=== PATIENT | female | born 1970 | race African-American/Black ===

== ENCOUNTER 2016-12-14 21:10 | Emergency (ER) | payer OTHER ==
[~2016-12-14] VITALS: Ht 170.2 cm; Wt 85.3 kg
--- NOTE | 2016-12-14 21:43 | PHYS DOC ---
Past History Past Medical History: No Pertinent History Alcohol Use: None Drug Use: None Adult General Chief Complaint Chief Complaint: KNEE INJURY HPI HPI 46-year-old otherwise healthy female presenting to the emergency department with right knee pain. She recently was seen at [facility] for having a closed right knee dislocation status post reduction. She did have a CT angiography of her right popliteal artery that was without any abnormalities at that time. She was placed in a knee immobilizer and instructed to follow up with Dr. Mcclain who she was able to follow up with hand is currently undergoing pursuing an MRI. Today she has noticed that she is been having worsening pain and swelling and has mild numbness and tingling in her deep peroneal nerve distribution. She has been walking on it today but she denies this being more than normal. Her pain is sharp moderate nonradiating mild and associated with mild tingling in her deep peroneal nerve. Review of systems is negative for fevers chills cough chest pain shortness of breath. She denies any rashes. All other review of systems is negative unless otherwise noted in history of present illness. Review of Systems Review of Systems SEE ABOVE. Allergies Allergies Allergies Coded Allergies Type Severity Reaction Last Updated Verified No Known Drug Allergies 12/14/16 No Physical Exam Physical Exam Constitutional: Well developed, well nourished, no acute distress, non-toxic appearance. HENT: Normocephalic, atraumatic, bilateral external ears normal, oropharynx moist, no oral exudates, nose normal. [] Eyes: PERRLA, EOMI, conjunctiva normal, no discharge. Neck: Normal range of motion, no tenderness, supple, no stridor. [] Cardiovascular:Heart rate regular rhythm, no murmur Lungs & Thorax: Bilateral breath sounds clear to auscultation [] Abdomen: Bowel sounds normal, soft, no tenderness, no masses, no pulsatile masses. [] Skin: Warm, dry, no erythema, no rash. [] Back: No tenderness, no CVA tenderness. [] Extremities: The patient's right lower extremity is currently in a knee immobilizer. After opening obtain immobilizer the patient has mild swelling. The knee joint itself is not erythematous and there is no rash. It is mildly warm to touch when compared to the contralateral side. Consistent with previous injury. Otherwise she reports mild decrease in sensation in the deep peroneal nerve. She is able to wiggle her toes and move her foot. 2 second cap refill present. Palpable pulse present. The remainder the extremities are nontender with normal range of motion. Neurologic: Alert and oriented X 3, normal motor function, normal sensory function, no focal deficits noted. Psychologic: Affect normal, judgement normal, mood normal. [] EKG EKG [] Radiology/Procedures Radiology/Procedures [] Course & Med Decision Making Course & Med Decision Making Pertinent Labs and Imaging studies reviewed. (See chart for details) [] 46-year-old female status post right knee dislocation coming in with acute knee pain. Vital signs afebrile. Pertinent physical exam findings show the knee was mildly swollen and mildly warm to touch. I considered septic arthritis however the patient's swelling and warmth to touch of the knee joint is quite consistent with her injury. There is no overlying cellulitis. I had a risk- benefit discussion with them about doing an arthrocentesis and collectively we decided not to perform this procedure. X-rays were obtained. I discussed the case with [Leny]. bloodwork showed nl wbc and esr. US of the leg showed midcalf superficial vein clot without DVT. I recommended full dose asa and f/u with pcp and dr. mcclain. The patient was then discharged home in stable condition to follow up with Dr. Mcclain tomorrow or the next day. They were to return if their symptoms worsened or if they were concerned for any reason. [id number] discharge instructions and return precautions were given. Patient's questions were answered to their satisfaction. Patient is comfortable plan. Dragon Disclaimer Dragon Disclaimer This chart was dictated in whole or in part using Voice Recognition software in a busy, high-work load, and often noisy Emergency Department environment. It may contain unintended and wholly unrecognized errors or omissions. Departure Departure: Impression: Primary Impression: Right knee pain Additional Impression: Superficial vein thrombosis Disposition: 01 HOME, SELF-CARE Condition: STABLE Referrals: PCP,UNKNOWN (PCP) Patient Instructions: Knee Dislocation Additional Instructions: Thank you for allowing us to participate in your care today. Followup with your primary care physician in 1-2 days. Take aspirin for superficial clot. You will need a repeat ultrasound of the leg in 1-2 wks. If you do not have a primary care provider you can ask for a list of our primary care providers. Return to the emergency department you have any new or concerning findings. This should be evaluated by the primary care physician and any necessary consulting services for continued management within a few days after discharge. Return to emergency room if you have any new or concerning symptoms including but not limited to fever, chills, nausea, vomiting, intractable pain, any new rashes, chest pain, shortness of air, uncontrolled bleeding, difficulty breathing, and/or vision loss. Scripts Aspirin (ASPIRIN) 325 Mg Tablet 1 TAB PO DAILY, #7 TAB 5 Refills Prov: NATALIA GONZALEZ MD 12/15/16 Problem Qualifiers NATALIA GONZALEZ MD December 14, 2016 21:43
[2016-12-14 22:51] VITALS: BP 143/73
[2016-12-14 23:15] LABS: BASO % 0 % (0-3); EOS # 0.6 x10^3/uL (0.0-0.7); EOS % 6 % (0-3); HEMATOCRIT 34.8 % (36.0-47.0); HEMOGLOBIN 11.5 g/dL (12.0-15.5); LYMPH # 2.8 x10^3/uL (1.0-4.8); LYMPH % 28 % (24-48); MEAN CORPUSCULAR HEMOGLOBIN 27 pg (25-35); MEAN CORPUSCULAR HGB CONC 33 g/dL (31-37); MEAN CORPUSCULAR VOLUME 82 fL (79-100); MONO # 0.7 x10^3/uL (0.0-1.1); MONO % 7 % (0-9); NEUT # 5.6 x10^3uL (1.8-7.7); NEUT % 58 % (31-73); PLATELET COUNT 277 x10^3/uL (140-400); RED BLOOD COUNT 4.26 x10^6/uL (3.50-5.40); RED CELL DISTRIBUTION WIDTH 15.7 % (11.5-14.5); WHITE BLOOD COUNT 9.7 x10^3/uL (4.0-11.0)
[2016-12-14 23:18] LABS: CALCIUM 8.8 mg/dL (8.5-10.1); CREATININE 1.2 mg/dL (0.6-1.0); GFR 59.1; POTASSIUM 3.6 mmol/L (3.5-5.1)
--- NOTE | 2016-12-14 23:58 | RAD ---
INDICATION: Leg pain. COMPARISON: None TECHNIQUE: Grayscale, color and spectral doppler ultrasound images are obtained through the right leg deep venous system. FINDINGS: Vascular flow is seen in the common femoral, superficial femoral, popliteal and visualized calf veins. IMPRESSION: No deep vein thrombosis identified of the right leg. Thrombus seen in gastrocnemius vein at mid calf. Electronically signed by: Mathew Steve (December 14, 2016 23:56:36)
[2016-12-15 00:11] LABS: SEDIMENTATION RATE 15 (0-25)
[2016-12-15] MEDS ORDERED: ASPI325T8 PO (00:39)
--- NOTE | 2016-12-15 07:52 | RAD ---
Right knee, 3 views, 12/14/2016: History: Injury, knee pain No fracture or dislocation is identified. There appears to be streaky edema in the soft tissues laterally. IMPRESSION: No acute bony abnormality is detected.
== END 2016-12-15 00:50 | disposition home or self-care (01) ==
LOC: ER 21:10
DX: I82.811 Embolism and thrombosis of superficial veins of right lower extremity (principal)
CPT/HCPCS: 29505; 36415; 73562; 80048; 85027; 85651; 93971; 99285-25

== ENCOUNTER 2017-01-07 12:48 | Emergency (ER) | payer OTHER ==
[~2017-01-07 12:48] MED LIST: ASPI325T8 PO
--- NOTE | 2017-01-07 13:32 | PHYS DOC ---
Past History Past Medical History: Other Past Surgical History: No Surgical History, , Other Alcohol Use: Occasionally Drug Use: None Adult General Chief Complaint Chief Complaint: KNEE SWELLING [facility] HPI This 46-year-old lady had an operation on her right knee on January 02. She is in a knee immobilizer and has an Rohan wrap on her leg. She is taking Xarelto to prevent DVT. He states that it feels like her leg is swollen and the skin is stretching because of the swelling. Review of Systems Review of Systems Constitutional: Denies fever or chills [] Eyes: Denies change in visual acuity, redness, or eye pain [] HENT: Denies nasal congestion or sore throat [] Respiratory: Denies cough or shortness of breath [] Cardiovascular: No additional information not addressed in HPI [] GI: Denies abdominal pain, nausea, vomiting, bloody stools or diarrhea [] : Denies dysuria or hematuria [] Musculoskeletal: Denies back pain or joint pain [] Integument: Denies rash or skin lesions [] Neurologic: Denies headache, focal weakness or sensory changes [] Endocrine: Denies polyuria or polydipsia [] Allergies Allergies Allergies Coded Allergies Type Severity Reaction Last Updated Verified No Known Drug Allergies 12/14/16 No Physical Exam Physical Exam Constitutional: Well developed, well nourished, no acute distress, non-toxic appearance. [] HENT: Normocephalic, atraumatic, bilateral external ears normal, oropharynx moist, no oral exudates, nose normal. [] Eyes: PERRLA, EOMI, conjunctiva normal, no discharge. [] Neck: Normal range of motion, no tenderness, supple, no stridor. [] Cardiovascular:Heart rate regular rhythm, no murmur [] Lungs & Thorax: Bilateral breath sounds clear to auscultation [] Abdomen: Bowel sounds normal, soft, no tenderness, no masses, no pulsatile masses. [] Skin: Warm, dry, no erythema, no rash. [] Back: No tenderness, no CVA tenderness. [] Extremities: No tenderness, no cyanosis, no clubbing, ROM intact, no edema. She has normal postoperative changes of the right lower extremity. There is some swelling around the incisions is no erythema or increased warmth Neurologic: Alert and oriented X 3, normal motor function, normal sensory function, no focal deficits noted. [] Psychologic: Affect normal, judgement normal, mood normal. [] Current Patient Data Vital Signs Vital Signs Date Time Temp Pulse Resp B/P (MAP) Pulse Ox O2 Delivery O2 Flow Rate FiO2 01/07/17 12:48 98.9 97 18 98 Room Air EKG EKG [] Radiology/Procedures Radiology/Procedures [] Impressions: Postoperative right knee pain , hematoma at the operative sites Course & Med Decision Making Course & Med Decision Making Ultrasound was done of the right knee and revealed no evidence of DVT however there is a large 14 x 7 x 2 cm hematoma around the operative site I talked at length with her orthopedic physician who advised that he will follow the patient and to continue her current medications [] Dragon Disclaimer Dragon Disclaimer This chart was dictated in whole or in part using Voice Recognition software in a busy, high-work load, and often noisy Emergency Department environment. It may contain unintended and wholly unrecognized errors or omissions. Departure Departure: Referrals: COREY STAHL MD (PCP) MAEVE MARTINEZ MD Jan 07, 2017 13:32
--- NOTE | 2017-01-07 14:36 | RAD ---
Right lower extremity venous ultrasound, 01/07/2017 : History: Leg swelling and pain Duplex evaluation including grayscale, color flow and spectral Doppler analysis was performed. The femoral and popliteal veins show no filling defects to suggest DVT. The visualized deep veins in the right calf are unremarkable. There is a large hypoechoic mass in the posterolateral soft tissues of the upper knee extending down into the upper calf. This process measures 14.7 x 7.8 x 2.7 cm. There are low level heterogeneous internal echoes. The findings are most compatible with a hematoma. Infection within this process cannot be excluded. IMPRESSION: 1. There is no sonographic evidence of deep vein thrombosis in the right lower extremity. 2. Complex fluid collection in the soft tissues along the posterolateral aspect of the knee and upper calf most compatible with a hematoma.
[2017-01-07 14:45] VITALS: BP 114/73
== END 2017-01-07 14:45 | disposition home or self-care (01) ==
LOC: ER 12:48
DX: G89.18 Other acute postprocedural pain (principal); M25.561 Pain in right knee; M96.840 Postprocedural hematoma of a musculoskeletal structure following a musculoskeletal system procedure
CPT/HCPCS: 93971; 99284-25

== ENCOUNTER 2020-05-26 12:01 | Emergency (ER) | payer OTHER ==
[~2020-05-26] VITALS: Ht 175.3 cm; Wt 90.9 kg
--- NOTE | 2020-05-26 12:41 | PHYS DOC ---
Past History Past Medical History: Other Past Surgical History: No Surgical History, , Other Alcohol Use: Occasionally Drug Use: None Adult General Chief Complaint Chief Complaint: LOWEREXTREMITY INJURY HPI HPI Patient is a 49-year-old female who presents with right foot pain. Patient reports walking and stepping and landing awkwardly on right foot. No pain or popping, slight inversion type injury. Has pain in midfoot on lateral portion, has not been able to fully bear weight on it due to the pain. Has not taken anything for the pain. Patient presenting for evaluation today. Reports motor and sensory functions intact, no other neurologic deficits reported Review of Systems Review of Systems Fourteen body systems of review of systems have been reviewed. See HPI for pertinent positives and negative responses, other hines all other systems are negative, non-pertinent or non-contributory Allergies Allergies Allergies Coded Allergies Type Severity Reaction Last Updated Verified No Known Drug Allergies 12/14/16 No Physical Exam Physical Exam Constitutional: Well developed, well nourished, no acute distress, non-toxic appearance. HENT: Normocephalic, atraumatic, bilateral external ears normal, oropharynx moist, no oral exudates, nose normal. Eyes: PERRLA, EOMI, conjunctiva normal, no discharge. Neck: Normal range of motion, no tenderness, supple, no stridor. Cardiovascular: Heart rate regular, sinus rhythm, no murmurs rubs or gallops Lungs & Thorax: Bilateral breath sounds clear to auscultation Abdomen: Bowel sounds normal, soft, no tenderness, no masses, no pulsatile masses. Nonsurgical abdomen, no peritoneal signs Skin: Warm, dry, no erythema, no rash. Back: No tenderness, no CVA tenderness. Extremities: Point tenderness to base of fifth metatarsal on right foot, antalgic gait due to pain without any other concerning findings on right lower extremity exam, no cyanosis, no clubbing, ROM intact, no edema. Neurologic: Alert and oriented X 3, normal motor & sensory function, no focal deficits noted. Psychologic: Affect normal, judgement normal, mood normal. Current Patient Data Vital Signs Vital Signs Date Time Temp Pulse Resp B/P (MAP) Pulse Ox O2 Delivery O2 Flow Rate FiO2 05/26/20 12:43 86 18 141/79 (99) 99 EKG EKG EKG ordered and interpreted by myself at 1240 hrs. as sinus rhythm at 98 bpm, unremarkable intervals, no axis deviation, no acute ischemic findings, no evidence of right heart strain or other findings consistent with potential pulmonary embolism, no STEMI Radiology/Procedures Radiology/Procedures PROCEDURE: FOOT RIGHT 3V Right foot 3 views: Reason for examination: Fell. There appears to be a transverse linear lucency at the base of the fifth metatarsal bone consistent with a nondisplaced fracture. No other site of fracture or dislocation is seen. The bone density is normal. No abnormal periosteal reaction is seen. Joint spaces appear to be maintained. IMPRESSION: Transverse linear lucency present posterior tip of the fifth metatarsal bone consistent with a nondisplaced fracture. Electronically signed by: Michelle Finch MD (05/26/2020 12:40 PM) [facility] Heart Score HEART Score for Chest Pain: HEART Score for Chest Pain Response (Comments) Value History Slighlty/Non-Suspicious 0 ECG Normal 0 Age < 45 0 Risk Factors 1 or 2 Risk Factors 1 Total 1 Risk Factors: Risk Factors: DM, Current or recent (<one month) smoker, HTN, HLP, family history of CAD, obesity. Risk Scores: Risk Factors: DM, Current or recent (<one month) smoker, HTN, HLP, family history of CAD, obesity. Course & Med Decision Making Course & Med Decision Making Discussed most likely diagnosis of zone [address] Mcmahan, Ortho at [facility] contacted and case discussed. Joint decision to apply short leg splint/walking boot with ambulation as tolerated with close follow-up in outpatient setting in upcoming 7 days Continued supportive care with rice protocol and NSAIDs/Tylenol for as needed pain. Strict return precautions discussed with good understanding, all questions and concerns addressed prior to ER departure in stable condition Dragon Disclaimer Dragon Disclaimer This electronic medical record was generated, in whole or in part, using a voice recognition dictation system. Departure Departure: Impression: Primary Impression: Nondisplaced fracture of fifth right metatarsal bone Disposition: 01 DC HOME SELF CARE/HOMELESS Condition: STABLE Referrals: PCP,VARGAS (PCP) MADELINE MCMAHAN MD Patient Instructions: Metatarsal Fracture with [facility] Additional Instructions: As discussed prior to departure, please call the [facility] orthopedic group for outpatient follow-up regarding your zone 1 right foot Purdy fracture Continue to ice and use NSAIDs/Tylenol for as needed pain control, weightbearing as tolerated If any concerning signs or symptoms represent prior to outpatient follow-up please do not hesitate to come back for repeat evaluation Is a pleasure to take care of you today and I wish you a speedy recovery GALO JIMENEZ DO May 26, 2020 12:41
[2020-05-26 12:43] VITALS: BP 141/79
== END 2020-05-26 13:26 | disposition home or self-care (01) ==
LOC: ER 12:01
DX: S92.591A Other fracture of right lesser toe(s), initial encounter for closed fracture (principal); Z98.890 Other specified postprocedural states; W01.0XXA Fall on same level from slipping, tripping and stumbling without subsequent striking against object, initial encounter; Y93.89 Activity, other specified; Y92.89 Other specified places as the place of occurrence of the external cause; Y99.8 Other external cause status
CPT/HCPCS: 73630; 99283

== ENCOUNTER 2021-04-22 08:57 | Emergency (ER) | payer OTHER ==
[~2021-04-22] VITALS: Ht 170.2 cm; Wt 93.3 kg
[2021-04-22 09:08] VITALS: BP 154/85
--- NOTE | 2021-04-22 09:27 | PHYS DOC ---
Past History Past Medical History: No Pertinent History, Other (GLORIA WEBB APRN) Past Surgical History: , Other Additional Past Surgical Histo: R knee X2 (GLORIA WEBB APRN) Alcohol Use: Occasionally Drug Use: None (GLORIA WEBB APRN) General Adult EDM: Chief Complaint: ABDOMINAL PAIN HPI: HPI: Patient is a 50-year-old female who presents to the ER today for right lower quadrant pain that radiates up into her right upper abdomen that started this morning. Patient rates pain 2 out of 10 while at rest and 6 out of 10 with movement. Patient is also reporting nausea. She denies vomiting, diarrhea, fevers. Her vital signs are stable and she is in no acute distress. (GLORIA WEBB APRN) Review of Systems: Review of Systems: 14 body systems of the review of systems have been reviewed. See HPI for pertinent positive and negative responses, otherwise all other systems are negative, nonpertinent or noncontributory (GLORIA WEBB APRN) Allergies: Allergies: Allergies Coded Allergies Type Severity Reaction Last Updated Verified No Known Drug Allergies 12/14/16 No (GLORIA WEBB APRN) Physical Exam: PE: Constitutional: Well developed, well nourished, no acute distress, non-toxic appearance. [] HENT: Normocephalic, atraumatic, bilateral external ears normal, oropharynx moist, no oral exudates, nose normal. [] Eyes: PERRL, EOMI, conjunctiva normal, no discharge. [] Neck: Normal range of motion, no stridor Cardiovascular:Heart rate regular rhythm, no murmur [] Lungs & Thorax: Bilateral breath sounds clear to auscultation [] Abdomen: Bowel sounds normal, soft, right upper quadrant tenderness with palpation, negative Fonseca sign, negative Rovsing sign, no masses, no pulsatile masses. [] Skin: Warm, dry, no erythema, no rash. [] Back: Normal range of motion Extremities: No tenderness, no cyanosis, no clubbing, ROM intact, no edema. [] Neurologic: Alert and oriented X 3, normal motor function, normal sensory function, no focal deficits noted. [] Psychologic: Affect normal, judgement normal, mood normal. [] (GLORIA WEBB APRN) Current Patient Data: Labs: Laboratory Tests Test 04/22/21 09:20 04/22/21 09:30 04/22/21 09:47 Urine Collection Type Unknown Urine Color Yellow Urine Clarity Hazy Urine pH 5.5 Urine Specific [place] >=1.030 Urine Protein 30 mg/dl Urine Glucose (UA) 100 mg/dL Urine Ketones (Stick) Neg mg/dL Urine Blood Large Urine Nitrite Neg Urine Bilirubin Neg Urine Urobilinogen Dipstick 0.2 mg/dL Urine Leukocyte Esterase Neg Urine RBC 6-10 /HPF Urine WBC 1-4 /HPF Urine Squamous Epithelial Cells Many /LPF Urine Bacteria Few /HPF Urine Mucus Mod /LPF White Blood Count 8.6 x10^3/uL Red Blood Count 4.55 x10^6/uL Hemoglobin 12.0 g/dL Hematocrit 37.1 % Mean Corpuscular Volume 82 fL Mean Corpuscular Hemoglobin 26 pg Mean Corpuscular Hemoglobin Concent 32 g/dL Red Cell Distribution Width 15.7 % Platelet Count 229 x10^3/uL Neutrophils (%) (Auto) 75 % Lymphocytes (%) (Auto) 19 % Monocytes (%) (Auto) 5 % Eosinophils (%) (Auto) 1 % Basophils (%) (Auto) 0 % Neutrophils # (Auto) 6.4 x10^3uL Lymphocytes # (Auto) 1.7 x10^3/uL Monocytes # (Auto) 0.4 x10^3/uL Eosinophils # (Auto) 0.1 x10^3/uL Basophils # (Auto) 0.0 x10^3/uL Sodium Level 140 mmol/L Potassium Level 3.6 mmol/L Chloride Level 103 mmol/L Carbon Dioxide Level 32 mmol/L Anion Gap 5 Blood Urea Nitrogen 12 mg/dL Creatinine 1.0 mg/dL Estimated GFR (Cockcroft-Gault) 71.6 BUN/Creatinine Ratio 12 Glucose Level 139 mg/dL Calcium Level 9.0 mg/dL Total Bilirubin 0.3 mg/dL Aspartate Amino Transf (AST/SGOT) 19 U/L Alanine Aminotransferase (ALT/SGPT) 26 U/L Alkaline Phosphatase 90 U/L Total Protein 7.8 g/dL Albumin 3.8 g/dL Albumin/Globulin Ratio 1.0 Lipase 61 U/L Bedside Urine HCG, Qualitative hcg negative Current Medications Medications (Trade) Dose Ordered Sig/Aparna Route PRN Reason Start Time Stop Time Status Last Admin Dose Admin Fentanyl Citrate (Fentanyl 2ml Vial) 50 mcg PRN Q15MIN PRN IV PAIN GREATER THAN 3/10 04/22/21 09:30 04/23/21 09:29 04/22/21 09:56 Sodium Chloride 1,000 ml @ 1,000 mls/hr Q1H IV 04/22/21 09:30 04/22/21 10:29 DC 04/22/21 09:53 Ondansetron HCl (Zofran) 4 mg 1X ONCE IVP 04/22/21 09:30 04/22/21 09:33 DC 04/22/21 09:54 Iohexol (Omnipaque 300 Mg/ml) 75 ml 1X ONCE IV 04/22/21 09:30 04/22/21 09:33 DC 04/22/21 09:38 Vital Signs: Vital Signs Date Time Temp Pulse Resp B/P (MAP) Pulse Ox O2 Delivery O2 Flow Rate FiO2 04/22/21 09:08 97.9 75 16 154/85 (108) 100 (GLORIA WEBB APRN) EKG: EKG: [] (GLORIA WEBB APRN) Radiology/Procedures: Radiology/Procedures: []PROCEDURE: CT ABD PELV W/ IV CONTRST ONLY EXAM: Abdomen and pelvis CT with intravenous contrast. HISTORY: Pain. TECHNIQUE: Computed tomographic images of the abdomen and pelvis were obtained following the administration of intravenous contrast. Multiplanar reformatting was performed. *One or more of the following individualized dose reduction techniques were utilized for this examination: 1. Automated exposure control. 2. Adjustment of the mA and/or kV according to patient size. 3. Use of iterative reconstruction technique. COMPARISON: None. FINDINGS: Evaluation of the lower thorax demonstrates posterior dependent and basilar atelectasis. There is no infiltrate or pleural effusion. The heart is normal in size. There are multiple hypodense lesions within the liver, the attenuation of which favors cysts. The largest of these measures 2.3 cm. There are few tiny hepatic lesions which are too small to characterize. There is suspected geographic fatty infiltration of the liver along the falciform ligament measuring 3.1 cm. The gallbladder, pancreas, spleen, adrenal glands, stomach and kidneys are unremarkable. There is no evidence of appendicitis. There is focal fatty stranding within the right ventral peritoneum adjacent to the cecum. This region of stranding measures approximately 4.0 cm. There is no adjacent colonic or small bowel wall thickening. There is no fluid collection. The bladder is nearly empty. The uterus is prominent in size. No convincing uterine mass is seen. The ovaries are unremarkable. The aorta is normal in caliber. There is no lymphadenopathy. There is no acute or suspicious osseous lesion. IMPRESSION: 1. Small region of fatty stranding within the ventral peritoneum of the right lower quadrant adjacent to the cecum, the appearance of which favors changes related to fat infarction/ischemia or epiploic appendagitis. There is no adjacent bowel wall thickening to suggest enteritis or colitis. There is no evidence of diverticulitis. There is no evidence of appendicitis. 2. Multiple hepatic cysts. There are few small hypodense lesions within the liver which are too small to characterize. In the absence of known malignancy, these are also likely cysts or hemangiomas. Electronically signed by: Scarlett Grimaldo MD (04/22/2021 9:51 AM) [facility] DICTATED AND SIGNED BY: SCARLETT GRIMALDO MD DATE: 04/22/21945 CC: GLORIA WEBB APRN; TAMY CUMMINS DO, M[facility] ~MTH0 0 (GLORIA WEBB APRN) Heart Score: C/O Chest Pain: No Risk Factors: Risk Factors: DM, Current or recent (<one month) smoker, HTN, HLP, family history of CAD, obesity. Risk Scores: Score 0 - 3: 2.5% MACE over next 6 weeks - Discharge Home Score 4 - 6: 20.3% MACE over next 6 weeks - Admit for Clinical Observation Score 7 - 10: 72.7% MACE over next 6 weeks - Early Invasive Strategies (GLORIA WEBB APRN) Course & Med Decision Making: Course & Med Decision Making Pertinent Labs and Imaging studies reviewed. (See chart for details) Patient is a 50-year-old female being seen in the ER for right lower quadrant pain that radiates into her right upper abdomen. Work-up in the ER consisted of blood work, urinalysis and CT imaging of abdomen. Patient was treated in the ER with fluids, nausea medication and pain medication. Lab work was unremarkable. Patient was noted to have blood in her urine but her menses ended yesterday. No signs of infection. CT scan of abdomen shows fat stranding of the ventral peritoneum consistent with fat infarction/ischemia with no inflammatory changes, appendix is normal-appearing, no kidney stones noted. I spoke to Dr. Randolph with general surgery at [facility] and he advised to discharge the patient home with conservative measures and have her follow-up tomorrow with her primary care provider. I discussed with patient all findings and diagnostic testing as well as the need to follow-up with PCP for further evaluation and treatment or return to the ER if any new or worsening symptoms. Strict return precautions were also discussed at length. Patient voiced understanding and agreement with the plan. Patient is hemodynamically stable at the time of disposition. (GLORIA WEBB APRN) Course & Med Decision Making I was the Attending physician on the above date of service of this patient. This patient was evaluated, examined, treated, and dispositioned from the emergency department by the mid-level practitioner. Although I was working at the time , no assistance was requested. Electronically signed, Galo Jimenez DO (GALO JIMENEZ DO) Greta Disclaimer: Greta Disclaimer: This electronic medical record was generated, in whole or in part, using a voice recognition dictation system. (GLORIA WEBB APRN) Departure Departure: Impression: Primary Impression: Abdominal pain Qualified Codes: R10.11 - Right upper quadrant pain Disposition: 01 HOME / SELF CARE / HOMELESS Condition: GOOD Referrals: TAMY CUMMINS DO, M[facility] (PCP) Patient Instructions: Abdominal Pain Additional Instructions: You were seen in the ER today for abdominal pain. Your blood work was reassuring and your urinalysis did not show an infection. CT scan of your abdomen still showed some inflammation of your intraperitoneal fat. This is usually self-limiting and benign. Please stick to clear liquid diet for the next 24 hours. This includes Jell-O, soups, Gatorade's. Following the 24 hours stick to a bland diet for another 24 hours, this includes bananas, rice, applesauce, toast, crackers. Follow-up with your primary care provider tomorrow regarding your ER visit. I would advise you to call them today to set up a follow-up appointment. Increase your fluids. If you develop intractable nausea/vomiting, severe abdominal pain, blood in your stools or vomit, high fevers refractory to treatment or any new or worsening concerns please return to the ER. EMERGENCY DEPARTMENT GENERAL DISCHARGE INSTRUCTIONS Thank you for coming to [facility] (ED) today and trusting us with you care. We trust that you had a positivie experience in our Emergency Department. If you wish to speak to the department management, you may call the director at [phone]. YOUR FOLLOW UP INSTRUCTIONS ARE FOLLOWS: 1. Do you have a private Doctor? If you do not have a private doctor, please ask for a resource list of physicians or clinics that may be able to assist you with follow up care. 2. The Emergency Physician has interpreted your x-rays. The X-Ray specialist will also review them. If there is a change in the findings, you will be notified in 48 hours when at all possible. 3. A lab test or culture has been done, your results will be reviewed and you will be notified if you need a change in treatment. ADDITIONAL INSTRUCTIONS AND INFORMATION: 1. Your care today has been supervised by a physician who is specially trained in emergency care. Many problems require more than one evaluation for a complete diagnosis and treatment. We recommend that you schedule your follow up appointment as recommended to ensure complete treatment of you illness or injury. If you are unable to obtain follow up care and continue to have a problem, or if your condition worsens, we recommend that you return to the ED. 2. We are not able to safely determine your condition over the phone nor are we able to give sound medical advice over the phone. For these safety reasons, if you call for medical advice we will ask you to come to the ED for further evaluation. 3. If you have any questions regarding these discharge instructions please call the ED at [phone]. SAFETY INFORMATION: In the interest of safety, wellness, and injury prevention; we encourage you to wear your sealbelt, if you smoke; quite smoking, and we encourage family to use a protective helmet for bicycling and other sporting events that present an increased risk for head injury. IF YOUR SYMPTOMS WORSEN OR NEW SYMPTOMS DEVELOP, OR YOU HAVE CONCERNS ABOUT YOUR CONDITION; OR IF YOUR CONDITION WORSENS WHILE YOU ARE WAITING FOR YOUR FOLLOW UP APPOINTMENT; EITHER CONTACT YOUR PRIMARY CARE DOCTOR, THE PHYSICIAN WHOSE NAME AND NUMBER YOU WERE GIVEN, OR RETURN TO THE ED IMMEDIATELY. GLORIA WEBB APRN Apr 22, 2021 09:27 GALO JIMENEZ DO Apr 27, 2021 17:49
[2021-04-22] MEDS ORDERED: IV NORMAL SALINE 1,000ML 1,000 ML IV SCH (09:30)
[2021-04-22] MEDS ORDERED: ONDANSETRON PF 4 MG/2 ML VIAL. IVP ONE (09:30)
[2021-04-22] MEDS ORDERED: IOHEXOL 300 MG/ML 75 ML VIAL. IV ONE (09:30)
--- NOTE | 2021-04-22 09:53 | RAD ---
EXAM: Abdomen and pelvis CT with intravenous contrast. HISTORY: Pain. TECHNIQUE: Computed tomographic images of the abdomen and pelvis were obtained following the administ ration of intravenous contrast. Multiplanar reformatting was performed. *One or more of the following individualized dose reduction techniques were utilized for this examina tion: 1. Automated exposure control. 2. Adjustment of the mA and/or kV according to patient size. 3. Use of iterative reconstruction technique. COMPARISON: None. FINDINGS: Evaluation of the lower thorax demonstrates posterior dependent and basilar atelectasis. Th ere is no infiltrate or pleural effusion. The heart is normal in size. There are multiple hypodense l esions within the liver, the attenuation of which favors cysts. The largest of these measures 2.3 cm. There are few tiny hepatic lesions which are too small to characterize. There is suspected geographi c fatty infiltration of the liver along the falciform ligament measuring 3.1 cm. The gallbladder, diaz creas, spleen, adrenal glands, stomach and kidneys are unremarkable. There is no evidence of appendicitis. There is focal fatty stranding within the right ventral periton eum adjacent to the cecum. This region of stranding measures approximately 4.0 cm. There is no adjace nt colonic or small bowel wall thickening. There is no fluid collection. The bladder is nearly empty. The uterus is prominent in size. No convincing uterine mass is seen. The ovaries are unremarkable. T he aorta is normal in caliber. There is no lymphadenopathy. There is no acute or suspicious osseous l esion. IMPRESSION: 1. Small region of fatty stranding within the ventral peritoneum of the right lower quadrant adjacent to the cecum, the appearance of which favors changes related to fat infarction/ischemia or epiploic appendagitis. There is no adjacent bowel wall thickening to suggest enteritis or colitis. There is no evidence of diverticulitis. There is no evidence of appendicitis. 2. Multiple hepatic cysts. There are few small hypodense lesions within the liver which are too small to characterize. In the absence of known malignancy, these are also likely cysts or hemangiomas. Electronically signed by: Scarlett Mantilla MD (04/22/2021 9:51 AM) [facility]
[2021-04-22 09:57] LABS: BASO % 0 % (0-3); EOS # 0.1 x10^3/uL (0.0-0.7); EOS % 1 % (0-3); HEMATOCRIT 37.1 % (36.0-47.0); LYMPH # 1.7 x10^3/uL (1.0-4.8); LYMPH % 19 % (24-48); MEAN CORPUSCULAR HEMOGLOBIN 26 pg (25-35); MEAN CORPUSCULAR HGB CONC 32 g/dL (31-37); MEAN CORPUSCULAR VOLUME 82 fL (79-100); MONO # 0.4 x10^3/uL (0.0-1.1); MONO % 5 % (0-9); NEUT # 6.4 x10^3uL (1.8-7.7); NEUT % 75 % (31-73); PLATELET COUNT 229 x10^3/uL (140-400); RED BLOOD COUNT 4.55 x10^6/uL (3.50-5.40); RED CELL DISTRIBUTION WIDTH 15.7 % (11.5-14.5); WHITE BLOOD COUNT 8.6 x10^3/uL (4.0-11.0)
[2021-04-22 10:02] LABS: GFR 71.6; POTASSIUM 3.6 mmol/L (3.5-5.1)
[2021-04-22 10:08] LABS: ALBUMIN 3.8 g/dL (3.4-5.0); TOTAL BILIRUBIN 0.3 mg/dL (0.2-1.0); TOTAL PROTEIN 7.8 g/dL (6.4-8.2)
[2021-04-22 10:34] LABS: BACTERIA,URINE FEW /HPF (0-FEW); BILIRUBIN,URINE NEG (NEG); CLARITY,URINE HAZY; COLOR,URINE YELLOW; GLUCOSE,URINE 100 mg/dL (NEG); NITRITE,URINE NEG (NEG); SQUAMOUS EPITHELIAL CELL,UR MANY /LPF; UROBILINOGEN,URINE 0.2 mg/dL (0.2 mg/dL)
--- NOTE | 2021-04-22 11:05 | EKG ---
[address] [address] Test Date: 2021-04-22 Test Time: 09:41:09 Pat Name: ERICK ROBIN Department: Room: Gender: F Linen Room Worker: LISA : 1970 Requested By: GLORIA WEBB Order Number: [id number] Reading MD: Measurements Intervals [place] Rate: 69 P: 0 ME: 174 QRS: 21 QRSD: 74 T: 6 QT: 394 QTc: 428 Interpretive Statements SINUS RHYTHM QRS(T) CONTOUR ABNORMALITY CONSISTENT WITH ANTEROSEPTAL INFARCT PROBABLY OLD ABNORMAL ECG RI6.02 No previous ECG available for comparison
== END 2021-04-22 11:07 | disposition home or self-care (01) ==
LOC: ER 08:57
DX: R10.11 Right upper quadrant pain (principal); R10.31 Right lower quadrant pain; R11.0 Nausea; Z98.890 Other specified postprocedural states
CPT/HCPCS: 36415; 74177; 80053; 81001; 81025; 83690; 85025; 93005; 96361; 96374; 96375; 99285; J2405; J3010; J7030; Q9967